=== PATIENT | female | born 1980 | race Caucasian/White ===

== ENCOUNTER 2021-05-28 09:58 | Outpatient (REF) | payer OTHER, SELFPAY ==
--- NOTE | ~2021-05-28 | XR_ITS ---
EXAMINATION: XR SHOULDER, RIGHT CLINICAL INFORMATION: Right shoulder pain. COMPARISON: None TECHNIQUE: AP external rotation, Grashey, scapular Y, and axillary views of the right shoulder. FINDINGS: The bones and soft tissues are normal. No fracture. Glenohumeral and acromioclavicular alignment is anatomic with normal joint space. No abnormal soft tissue calcifications. XR/XR shoulder RT min 2V IMPRESSION: Normal right shoulder.
== END 2021-05-28 09:59 | disposition home or self-care (01) ==
LOC: HO.XRAY 09:58
PROVIDERS: Absent Provider Internal Medicine; PCP Internal Medicine; Visit Provider Emergency Medicine
DX: M25.511 Pain in right shoulder (principal)
CPT/HCPCS: 73030

== ENCOUNTER → 2021-06-27 10:53 | Outpatient (BNVA) | payer OTHER, SELFPAY | PROVIDERS: PCP Internal Medicine; Visit Provider Orthopaedic Surgery | DX: M25.511 Pain in right shoulder (principal) | CPT/HCPCS: 99202 ==

== ENCOUNTER 2025-04-30 08:18 | Outpatient (REF) | payer OTHER, SELFPAY ==
--- OUTSIDE RECORDS SUMMARY | 2025-04-30 08:35 | XMS_ITS | Encounter Summary ---
Author Organization [facility] Address [address] [place] [address] Care Team Providers Care Wood Shop Teacher Name Role Phone Cecilia High MD Primary Care Provider Jennifer Painter ANP Primary Care Provider [phone] Jennifer Mar ANP Primary Care Provider [phone] Encounter Details Date Type Department Care Team (Latest Contact Info) Description 01/01/2021 Abstract [facility] CONVERSIONS Dental, Provider, DDS Social History Tobacco Use Types Packs/Day Years Used Date Smoking Tobacco: Never Assessed Comments Unknown Sex and Gender Information Value Date Recorded Sex Assigned at Female 05/11/2022 10:31 AM EDT Legal Sex Female 10:31 AM EDT Gender Identity Female 05/11/2022 10:31 AM EDT Sexual Orientation Straight 05/11/2022 10 :31 AM EDT documented as of this encounter Plan of Treatment Upcoming Encounters Date Type Department Care Team (Late st Contact Info) Description 07/23/2025 8:45 AM EST Office Visit [facility] ADULT DENTAL [address] [place] [address] Yessenia, Geri [address] [place] [address] documented as of this encounter Visit Diagnoses Not on filedocumented in this encounter Care Teams Wood Shop Teacher Relationship Specialty Start Date End Date Cecilia High MD PCP - General Family Medicine 05/02/19 05/27/22 Jennifer Mar ANP [address] [place] [address] PCP - General Family Medicine 05/28/22 08/31/23 Jennifer Mar ANP [address] [place] [address] PCP - General Family Medicine 09/10/23 documented as of this encounter
--- OUTSIDE RECORDS SUMMARY | 2025-04-30 08:35 | XMS_ITS | Encounter Summary ---
Author Organization [employer] [facility] Address [address] [place] [address] Care Team Providers Care Brusher Tender Name Role Phone Cecilia High MD Primary Care Provider Jennifer Painter ANP Primary Care Provider [phone] Jennifer Mar ANP Primary Care Provider [phone] Encounter Details Date Type Department Care Team (Latest Contact Info) Description 08/15/2019 Abstract [facility] CONVERSIONS Dental, Provider, DDS Social History [...] Description 07/23/2025 8:45 AM EST Office Visit [facility] ADULT DENTAL [address] [place] [address] Yessenia Geri [address] [place] [address] documented as of this encounter Visit Diagnoses Not on filedocumented in this encounter Care Teams Brusher Tender Relationship Specialty Start Date End Date Cecilia High MD PCP - General Family Medicine 05/02/19 05/27/22 Jennifer Mar ANP [address] [place] [address] PCP - General Family Medicine 05/28/22 08/31/23 Jennifer Mar ANP [address] [place] [address] PCP - General Family Medicine 09/10/23 documented as of this encounter
--- OUTSIDE RECORDS SUMMARY | 2025-04-30 08:35 | XMS_ITS | Clinical Summary ---
Author Organization [employer] Address [address] [place] [address] 7 [place] [address] Care Team Providers Care Integration Developer Name Role Phone Jennifer Mar Primary Care Provider [phone] Allergies No known active allergies Medications Diclofenac Sodium (Voltaren) 1 % gelIndications: Chronic right shoulder pain Apply 2g up to 4x/d to affected joint(s) for pain/swelling 100 g 2 3 Active Additional Information Patient not taking.Reported on 10/02/2024 chlorhexidine (Peridex) 0.12 % solution USE FOR MOUTHWASH 15 ML FOR 30 SECONDS, SWISH AND SPIT FOR UP TO 14 DAYS. 473 mL 4 Active Additional Information Patient not taking.Reported on 10/02/2024 Active Problems Problem Noted Date Diagnosed Date Bilateral arm pain 04/20/2025 Low serum vitamin D 04/20/2025 Dental caries 01/19/2023 Periodontal disease 12/09/2022 Dental calculus 12/09/2022 Localized gingival recession 12/09/2022 Resolved Problems Problem Noted Date Diagnosed Date Resolved Date Burning sensation of feet 02/07/2018 Burning sensation of eye 02/07/201804/2025 Acute low back pain 09/24/2016 04/20/20 Acute otitis externa 09/24/2016 025 Encounters Date Type Department Care Team Description 04/20/2025 9:45 AM EDT Office Visit [facility] MED[facility] [address] [place] [id number] Jennifer Mar ANP Healthcare maintenance (Primary Dx); Witnessed apneic spells; Cervical cancer screening; Need for hepatitis B screening test; Screening mammogram for breast cancer; Encounter for immunization; Irregular menses; Elevated glucose; Low serum vitamin D; Bilateral arm pain 04/20/2025 Telephone [facility] [address] [place] [address] Jennifer Mar ANP 04/20/2025 Travel 04/19/2025 Telephone [facility] [address] [place], [place] [phone] Jennifer Mar ANP chart prep 04/13/2025 Patient Outreach [facility] [address] [place], [place] [phone] Jennifer Mar ANP Pre-visit Planning (SDOH negative. Tobacco screening negative. ) 04/09/2025 8:00 AM EDT Office Visit [facility] ADULT DENTAL [address] [place] [address] Yessenia, Geri Dental calculus (Primary Dx); Periodontal abscess from Last 3 Months Immunizations Immunization Administration Dates Next Due Influenza injectable quadrivalent preservative f ree 09/25/2022,09/24/2016 Influenza, seasonal, injectable, preservative fr ee 04/20/2025 Tdap 12/27/2018 Social History Tobacco Use Types Packs/Day Years Used Date Smoking Tobacco: Never Smokeless Tobacco: Never Tobacco Cessation:Counseling Given: Not Answered Alcohol Use Standard Drinks/Week Comments Never 0 (1 standard drink = 0.6 oz pur e alcohol) Depression Answer Date Recorded Patient Health Questionnaire-9 Score 1 04/20/2025 Patient Health Questionnaire-9 Score 1 04/20/2025 Last PHQ-9: Questionnaire Data Not on file 1 Housing Stability Answer Date Recorded What is your housing situation today? I have jluis multani 04/13/[address] you li ve. Do you have problems with any of the following? None of the above 04/13/2025 Food Insecurity Answer Date Recorded Within the past 12 months, y ou worried that your food would run out before you got money to buy more: Never True 04/13/2025 Within the past 12 months,th e food you bought just didn't last and you didn't have enough money to get more: Never True 09/2024 Transportation Answer Date Recorded In the past 12 months, has l ack of transportation kept you from medical appts, meetings, work or from getting things needed for daily living? No 04/13/2025 Utilities Answer Date Recorded In the past 12 months, has t he electric, gas, oil or water company threatened to shut off services in your home? No 04/13/2025 Depression Answer Date Recorded Patient Health Questionnaire-2 Score 0 04/20/2025 Internet Access Answer Date Recorded Internet Access Q1 Yes 04/13/2025 Internet Access Q2 Not on file 04/13/2025 Comments Unknown Intention Date Recorded No desire to become (finding) 1 Sex and Gender Information Value Date Recorded Sex Assigned at Female 05/11/2022 10:31 AM EDT Legal Sex Female 10:31 AM EDT Gender Identity Female 05/11/2022 10:31 AM EDT Sexual Orientation Straight 05/11/2022 10 :31 AM EDT Last Filed Vital Signs Vital Sign Reading Time Taken Comments Blood Pressure 102/74 04/20/2025 9:53 AM EDT Pulse 86 04/20/2025 9:53 AM EDT Temperature 37 C (98.6 F) 04/20/2025 9:53 AM EDT Respiratory Rate 14 04/20/2025 9:53 AM EDT Oxygen Saturation 98% 04/20/2025 9:53 AM EDT Inhaled Oxygen Concentration - - Weight 70.8 kg (156 lb) 04/20/2025 9:53 AM EDT Height 152.4 cm (5') 04/20/2025 9:53 AM EDT Body Mass Index 30.47 04/20/2025 9:53 AM EDT Plan of Treatment Upcoming Encounters Date Type Department Care Team (Late st Contact Info) Description 07/23/2025 8:45 AM EST Office Visit [facility] ADULT DENTAL [address] [place] [address] Yessenia, Geri [address] [place] [address] Health Maintenance Due Date Last Done Comments HPV Vaccines (1 - 3-dose series) 10/02/1995 Hepatitis C Screening 1998 Hepatitis B Vaccines (1 of 3 - 19+ 3-dose series) 10/02/1999 Pap Smear 2001 Mammogram 2020 Cervical Cancer Screening 03/23/2024 HPV/Cotest 03/23/2024 03/23/2019 COVID-19 Vaccine ( season) 2025 Dental Oral Exam 04/05/2025 10/02/2024, , 11/18/2022 Dental X-Ray: Bitewings 10/03/2025 10/03/19, 04/03/2024, 03/30/2024, Additional history exists Dental Prophylaxis 10/08/2025 04/09/2025, 0 10/02/2024, 03/30/2024, Additional history exists SDOH Screening 04/13/2026 04/13/2025 Alcohol/Substance Use Screening 04/20/2026 04/20/2025 Depression Screening 04/20/2026 04/20/2025, 04/20/20 Disability Screening 04/20/2026 04/20/2025 Family Planning (PISQ) 04/20/2026 04/20/2025 Tobacco Screening 04/20/2026 04/20/2025 Dental X-Ray: Full Mouth 10/04/2027 10/02/2024, 0609/2020 DTaP/Tdap/Td Vaccines (2 - Td or Tdap) 12/27/2028 12/27/2018 Zoster Vaccines (1 of 2) 2030 RSV Patients and Patients Aged 60 years or older (1 - 1-dose 75+ series) 10/02/2055 HIV Screening Completed 12/31/2020 Influenza Vaccine Completed 04/20/2025, , 09/24/2016 HIB Vaccines Aged Out No longer eligi ble based on patient's age to complete this topic Hepatitis A Vaccines Aged Out No long er eligible based on patient's age to complete this topic IPV Vaccines Aged Out No longer eligi ble based on patient's age to complete this topic Meningococcal B Vaccine Aged Out No l onger eligible based on patient's age to complete this topic Meningococcal Vaccine Aged Out No melyssa per eligible based on patient's age to complete this topic Pneumococcal Vaccine: Pediatrics (0 to 5 Years) and At-Risk Patients (6 to 49) Years Aged Out No longer eligible based on patient's age to complete this topic RSV under 20 months Aged Out No longe r eligible based on patient's age to complete this topic Rotavirus Vaccines Aged Out No longer eligible based on patient's age to complete this topic Procedures Procedure Name Priority Date/Time Associated Diagnosis Comments CASE PRESENTATION, DETAILED AND EXTENSIVE TREATMENT PLANNING Routine 04/09/2025 8:00 AM EDT Dental calculus Periodontal abscess ORAL HYGIENE INSTRUCTIONS Routine 04/09/2025 8:00 AM EDT Dental calculus Periodontal abscess Full PROPHYLAXIS - ADULT Routine 04/09/2025 8:00 AM EDT Dental calculus Periodontal abscess INTRAORAL - COMPLETE SERIES OF RADIOGRAPHIC IMAGES Routine 10/02/2024 8:00 AM EDT Dental calculus Localized gingival recession Periodontal abscess PERIODIC ORAL EVALUATION - ESTABLISHED PATIENT Routine 10/02/2024 8:00 AM EDT Dental calculus Localized gingival recession Periodontal abscess Advanced periodontitis Encounter for dental examination Periodontal disease HIV 1/2 ANTIGEN/ANTIBODY, FOURTH GENERATION W/RFL Routine 12/31/2020 9:54 AM EDT ZZZ HISTORICAL HPV MRNA E6/E7 Routine 03/23/2019 11:20 AM EDT from Last 3 Months or Most Recently Relevant to Health Maintenance Results * HIV 1/2 ANTIGEN/ANTIBODY,FOURTH GENERATION W/RFL (12/31/2020 9:54 AM EDT) Pathologist [facility] HIV-1/2 ANTIGEN AND ANTIBODIES, 4TH GENERATION W/ REFLEX NON-REACT FORD NON-REACT [facility] Comment: HIV-1 antigen and HIV-1/HIV-2 antibodies were not detected. There is no laboratory evidence of HIV infection. PLEASE NOTE: This information has been disclosed to you from records whose confidentiality may be protected by state law. If your state requires such protection, then the state law prohibits you from making any further disclosure of the information without the specific written consent of the person to whom it pertains, or as otherwise permitted by law. A general authorization for the release of medical or other information is NOT sufficient for this purpose. For additional information please refer to http://education.[employer]Touchbase/faq/FQL487 (This link is being provided for informational/ educational purposes only.) The performance of this assay has not been clinically validated in patients less than 2 years old. 12/31/2020 9:54 AM EDT us Cecilia High MD LAB BLOOD ORDERABLES Final R esult Performing Organization Address [facility]/ZIP Co de Phone Number [facility] [address] * HPV mRNA E6/E7 (03/23/2019 11:20 AM EDT) HPV mRNA E6/E7 Not Detected NOT DETECTED [facility] Comment: This test was performed using the APTIMA(R) HPV Assay ([employer] This assay detects E6/E7 viral messenger RNA (mRNA) from 14 high-risk HPV types (16,18,31,33,35,39,45,51, 52,56,58,59,66,68). For additional information please refer to: http://education.G[employer]/faq/OTZ716u8 (This link is being provided for informational/ educational purposes only.) The analytical performance characteristics of this assay have been determined by [facility] [place], [place]. The modifications have not been cleared or approved by the FDA. This assay has been validated pursuant to the CLIA regulations and is used for clinical purposes. Test Performed by [facility], [facility], [address] [place] [address] Vaibhav Archibald M.D., Ph.D., Director of Laboratories , CLIA [id number] Please note: Effective 03/23/2016, HPV testing will be performed using [employer]'s APTIMA test which targets mRNA. Detecting mRNA instead of DNA, as in older methods, offers significant improvements in specificity. 03/23/2019 11:2 0 AM EDT us Elin Elizabeth CNM HISTORICAL/NON ORDERABLE LABS Final Result Performing Organization Address [facility] Co de Phone Number [facility] [address] from Last 3 Months or Most Recently Relevant to Health Maintenance Insurance [facility] 3 DENTAL - HSN PARTIAL (MEDICAID) Care Teams Integration Developer Relationship Specialty Start Date End Date Jennifer Mar ANP [address] [place] [address] PCP - General Family Medicine 09/10/23
--- OUTSIDE RECORDS SUMMARY | 2025-04-30 08:35 | XMS_ITS | Encounter Summary ---
Author Organization [employer] [facility] Address [address] [place] [address] Care Team Providers Care Money Market Clerk Name Role Phone Jennifer Mar Primary Care Provider Jennifer Mar Primary Care Provider [phone] Encounter Details Date Type Department Care Team (Late st Contact Info) Description 12/18/2022 Abstract [facility] ADULT DENTAL [address] [place] [address] Geri Casas [address] [place] [address] Social History Tobacco Use Types Packs/Day Years Used Date Smoking Tobacco: Never Smokeless Tobacco: Never Alcohol Use Standard Drinks/Week Comments Never 0 (1 standard drink = 0.6 oz pur e alcohol) Depression Answer Date Recorded Patient Health Questionnaire-9 Score 0 09/25/2022 Depression Answer Date Recorded Patient Health Questionnaire-2 Score 0 09/25/2022 Comments Unknown Sex and Gender Information Value Date Recorded Sex Assigned at Female 05/11/2022 10:31 AM EDT Legal Sex Female 10:31 AM EDT Gender Identity Female 05/11/2022 10:31 AM EDT Sexual Orientation Straight 05/11/2022 10 :31 AM EDT COVID-19 Exposure Response Date Recorded In the last 10 days, have yo u been in contact with someone who was confirmed or suspected to have Coronavirus/COVID-19? No / Unsure 12/09/2022 9:06 AM EDT documented as of this encounter Plan of Treatment Upcoming Encounters Date Type Department Care Team (Late st Contact Info) Description 07/23/2025 8:45 AM EST Office Visit [facility] ADULT DENTAL [address] [place] [address] Geri Casas [address] [place], [place] [phone] documented as of this encounter Visit Diagnoses Not on filedocumented in this encounter Additional Health Concerns Assessment Noted Time PHQ-9 Depression Total Score: 0 09/26/19 23 9:52 AM EDT documented as of this encounter Care Teams Money Market Clerk Relationship Specialty Start Date End Date Jennifer Mar ANP [address] [place] [address] PCP - General Family Medicine 05/28/22 08/31/23 Jennifer Mar ANP [address] [place] [address] PCP - General Family Medicine 09/10/23 documented as of this encounter
--- OUTSIDE RECORDS SUMMARY | 2025-04-30 08:35 | XMS_ITS | Encounter Summary ---
Author Organization [employer] [facility] Address [address] [place] [address] Care Team Providers Care Roofer Metal Name Role Phone Cecilia High MD Primary Care Provider Jennifer Painter ANP Primary Care Provider Jennifer Mar ANP Primary Care Provider [phone] Encounter Details Date Type Department Care Team (Latest Contact Info) Description 11/22/2018 Abstract [facility] CONVERSIONS Dental, Provider, DDS Social History [...] 8:45 AM EST Office Visit [facility] ADULT DENTAL [address] [place] [address] Yessenia Geri [address] [place] [address] documented as of this encounter Visit Diagnoses Not on filedocumented in this encounter Care Teams Roofer Metal Relationship Specialty Start Date End Date Cecilia High MD PCP - General Family Medicine 05/02/19 05/27/22 Jennifer Mar ANP [address] [place] [address] PCP - General Family Medicine 05/28/22 08/31/23 Jennifer Mar ANP [address] [place] [address] PCP - General Family Medicine 09/10/23 documented as of this encounter
--- OUTSIDE RECORDS SUMMARY | 2025-04-30 08:35 | XMS_ITS | Encounter Summary ---
Author Organization [facility] [facility] Address [address] [place] [address] Care Team Providers Care Foot Orthopedist Name Role Phone Jennifer Mar Primary Care Provider [phone] Jennifer Mar Primary Care Provider [phone] Encounter Details Date Type Department Care Team (Late st Contact Info) Description 01/13/2023 Abstract [facility] ADULT DENTAL [address] [place] [address] Geri Casas [address] [place] [address] Social History Tobacco Use Types Packs/Day Years [...] suspected to have Coronavirus/COVID-19? No / Unsure 01/07/2023 1:54 PM EDT documented as of this encounter Plan of Treatment Upcoming Encounters Date Type Department Care Team (Late st Contact Info) Description 07/23/2025 8:45 AM EST Office Visit [facility] ADULT DENTAL [address] [place] [address] Geri Casas [address] [place], [place] [phone] documented as of this encounter Visit Diagnoses Not on filedocumented in this encounter Additional Health Concerns Assessment Noted Time PHQ-9 Depression Total Score: 0 09/26/19 23 9:52 AM EDT documented as of this encounter Care Teams Foot Orthopedist Relationship Specialty Start Date End Date Jennifer Mar ANP [address] [place] [address] PCP - General Family Medicine 05/28/22 08/31/23 Jennifer Mar ANP [address] [place] [address] PCP - General Family Medicine 09/10/23 documented as of this encounter
--- OUTSIDE RECORDS SUMMARY | 2025-04-30 08:36 | XMS_ITS | Encounter Summary ---
Author Organization [employer] Address [address] [place] [address] [address] [place] [address] Care Team Providers Care Coverer Name Role Phone Zaid Jennifer VACA Primary Care Provider Reason for Visit * Reason Comments Med Change Request Encounter Details Date Type Department Care Team ([facility] st Contact Info) Description 2023 Refill [facility] ADULT DENTAL [address] [place] [address] Anna Juarez, DDS [address] [place] [address] Social History Tobacco Use Types Packs/Day Years Used Date Smoking Tobacco: Never Smokeless Tobacco: Never Alcohol Use Standard Drinks/Week Comments Never 0 (1 standard drink = 0.6 oz pur e alcohol) Depression Answer Date Recorded Patient Health Questionnaire-9 Score 0 09/25/2022 Housing Stability Answer Date Recorded What is your housing situation today? I have jluis multani 05/10/[address] you li ve. Do you have problems with any of the following? None of the above 05/10/2023 Food Insecurity Answer Date Recorded Within the past 12 months, y ou worried that your food would run out before you got money to buy more: Never True 05/10/2023 Within the past 12 months,th e food you bought just didn't last and you didn't have enough money to get more: Never True Transportation Answer Date Recorded In the past 12 months, has l ack of transportation kept you from medical appts, meetings, work or from getting things needed for daily living? No 05/10/2023 Utilities Answer Date Recorded In the past 12 months, has t he electric, gas, oil or water company threatened to shut off services in your home? No 05/10/2023 Depression Answer Date Recorded Patient Health Questionnaire-2 Score 0 09/25/2022 Comments Unknown Sex and Gender Information Value Date Recorded Sex Assigned at Female 05/11/2022 10:31 AM EDT Legal Sex Female 10:31 AM EDT Gender Identity Female 05/11/2022 10:31 AM EDT Sexual Orientation Straight 05/11/2022 10 :31 AM EDT documented as of this encounter Miscellaneous Notes * Telephone Encounter - Anna Juarez DDS - 2023 9:27 AM EDT Approving, but needs appt for additional refills. documented in this encounter Plan of Treatment Upcoming Encounters Date Type Department Care Team (Late st Contact Info) Description 07/23/2025 8:45 AM EST Office Visit [facility] ADULT DENTAL [address] [place] [address] Geri Casas [address] [place] [address] documented as of this encounter Visit Diagnoses Not on filedocumented in this encounter Additional Health Concerns Assessment Noted Time PHQ-9 Depression Total Score: 0 09/26/19 23 9:52 AM EDT documented as of this encounter Care Teams Coverer Relationship Specialty Start Date End Date Jennifer Mar ANP [address] [place] [address] PCP - General Family Medicine 09/10/23 documented as of this encounter
[2025-04-30 11:54] LABS: HBS Num1 0.54 mIU/mL (0-7.99); HBc Num1 0.09 S/CO (0.00-0.79); HBsAGNum1 0.38 S/CO (0.00-0.99); Hepatitis B Surface Antigen Negative (Negative); ~HepC Num1 0.10 S/CO (0.00-0.79); ~Hepatitis B Surface Antibody NONREACTIVE (Nonreactive); ~Hepatitis C Antibody Nonreactive (Nonreactive)
[2025-04-30 11:57] LABS: Alanine Aminotransferase 20 U/L (0-31); Albumin Level 4.5 g/dL (3.5-5.0); Alkaline Phosphatase 87 U/L (39-117); Anion Gap 12 (12-20); Aspartate Amino Transferase 19 U/L (5-31); Blood Urea Nitrogen 13 mg/dL (9-16); Calcium 9.1 mg/dL (8.4-10.2); Carbon Dioxide 26 mmol/L (22-29); Chloride 107 mmol/L (96-108); Cholesterol 176 mg/dL (<200); Estimated Glomerular Filt Rate > 60; HDL Cholesterol 48 mg/dL (>40); Potassium 4.1 mmol/L (3.3-5.1); Sodium 141 mmol/L (135-145); Total Protein 7.5 g/dL (6.5-8.0); Triglycerides 115 mg/dL (<150)
== END 2025-04-30 08:19 | disposition home or self-care (01) ==
LOC: HO.HHCL 08:18
PROVIDERS: PCP Nurse Practitioner Primary Care; Visit Provider Nurse Practitioner Primary Care
DX: Z00.00 Encounter for general adult medical examination without abnormal findings (principal); Z11.59 Encounter for screening for other viral diseases; R73.09 Other abnormal glucose; N92.6 Irregular menstruation, unspecified; R79.89 Other specified abnormal findings of blood chemistry
CPT/HCPCS: 36415; 80053; 80061; 82306; 83036; 84443; 86704; 86706; 86803; 87340

== ENCOUNTER 2025-06-23 09:00 | Outpatient (REF) | payer OTHER, SELFPAY ==
--- NOTE | ~2025-06-23 | MM_ITS ---
EXAMINATION: MM SCREENING DIGITAL BREAST TOMOSYNTHESIS, BILATERAL CLINICAL INFORMATION: Screening. Asymptomatic. COMPARISON: Mammography: Baseline. TECHNIQUE: Digital breast mammography with tomosynthesis is performed in both the craniocaudal and mediolateral oblique views along with computer-aided detection (CAD). FINDINGS: There are scattered areas of fibroglandular density. There are no significant masses, abnormal calcifications, or other abnormalities. MM/MM tomosynthesis screening BI IMPRESSION: No mammographic evidence of malignancy. ASSESSMENT: BI-RADS Category 1: Negative RECOMMENDATION: Routine annual mammography screening. 1 year F/U This examination should not preclude the clinical evaluation of a suspicious palpable abnormality. This patient's information was entered into a reminder system with a target due date for their next mammogram. Electronically signed by: Skyla Hull DO 06/26/2025 02:05 PM [facility]
== END 2025-06-23 09:01 | disposition home or self-care (01) ==
LOC: HO.MAMMO 09:00
PROVIDERS: PCP Nurse Practitioner Primary Care; Visit Provider Nurse Practitioner Primary Care
DX: Z12.31 Encounter for screening mammogram for malignant neoplasm of breast (principal)
CPT/HCPCS: 77063; 77067

== ENCOUNTER → 2025-06-23 09:00 | Outpatient (BNV) | payer OTHER, SELFPAY | PROVIDERS: PCP Nurse Practitioner Primary Care; Visit Provider Internal Medicine | DX: Z12.31 Encounter for screening mammogram for malignant neoplasm of breast (principal) | CPT/HCPCS: 77063; 77067 ==